=== PATIENT | female | born 1990 ===

== ENCOUNTER 2025-03-12 19:27 | Emergency (ER) | payer BC ==
[~2025-03-12] VITALS: Ht 160 cm; Wt 120.7 kg
[2025-03-12 19:30] VITALS: BP 123/65; PULSE 78; RESP 20; TEMP 97.7
--- NOTE | 2025-03-12 20:05 | ERN ---
ED Note History of Present Illness Stated Complaint: C/O HEAVY MENSTRUAL CYCLE Chief Complaint: Menstrual Cramps/Pain Time Seen by MD: 19:30 Dictation: 35-YEAR-OLD FEMALE PRESENTS TO ER COMPLAINTS OF HEAVY MENSTRUAL CYCLE FOR 23 DAYS. DENIES ANY DIZZINESS OR FEELING FAINT. PATIENT STATES SHE DOES NOT HAVE [employer] SUPERVISOR APPOINTMENT UNTIL 1 MORE WEEK. Past Medical History Past Medical History: No Pertinent History Surgical History: None LMP: Mar 12, 2025 Review of System Dictation CONSTITUTIONAL: NEGATIVE FOR FEVER,CHILLS, AND WEIGHT LOSS EYES: NEGATIVE FOR INJURY, PAIN,REDNESS, AND DISCHARGE ENT: NEGATIVE FOR INJURY,PAIN OR SWELLING CARDIOVASCULAR: NEGATIVE FOR CHEST PAIN, PALPITATIONS, AND EDEMA RESPIRATORY: NEGATIVE FOR SHORTNESS OF BREATH, COUGH, WHEEZING, AND PLEURITIC CHEST PAIN ABDOMEN/GI: NEGATIVE FOR ABDOMINAL PAIN, NAUSEA, VOMITING, DIARRHEA, AND CONSTIPATION BACK: NEGATIVE FOR INJURY AND PAIN : POSITIVE FOR VAGINAL BLEEDING MS/EXTREMITY: NEGATIVE FOR INJURY AND DEFORMITY SKIN: NEGATIVE FOR RASH, AND DISCOLORATION NEURO: NEGATIVE FOR HEADACHE, WEAKNESS, NUMBNESS, TINGLING, AND SEIZURE PSYCH: NEGATIVE FOR SUICIDE IDEATION, HOMICIDAL IDEATION, AND HALLUCINATIONS ALLERGY/IMMUNOLOGY: NEGATIVE FOR HIVES, RASH, AND ALLERGIES Initial Vital Sign VS Vital Signs Date Time Temp Pulse Resp B/P (MAP) Pulse Ox O2 Delivery O2 Flow Rate FiO2 03/12/25 19:30 97.7 78 20 123/65 99 Room Air Physical Exam Dictation GENERAL: AWAKE, ALERT, NAD HEAD/FACE: NORMOCEPHALIC, ATRAUMATIC EYES: PERRL, EOMI, VISION AT BASELINE ENT: ORAL CAVITY CLEAR, TMS CLEAR, NO SIGNS OF INFECTION NECK: TRACHEA MIDLINE, SUPPLE, NO NUCHAL RIGIDITY CARDIOVASCULAR: RRR, NORMAL S1/S2, NO MRGS, NO JVD RESPIRATORY: CTAB, NO RESPIRATORY DISTRESS, NO RALES OR WHEEZES ABDOMEN: SOFT, NON-TENDER, NON-DISTENDED, NORMAL BOWEL SOUNDS, NO GUARDING OR REBOUND. SKIN: WARM, DRY, NORMAL TURGOR, NO RASH MS/EXTREMITY: PULSES EQUAL, NO CYANOSIS, NEUROVASCULAR INTACT, FROM NEURO: COAX4, GCS 15, STRENGTH 5/5, CN 2-12 INTACT, NORMAL CEREBELLAR EXAM, NORMAL GAIT, PSYCH: NORMAL BEHAVIOR, MOOD, AND AFFECT NORMAL ED Course ED Course Vital Signs Date Time Temp Pulse Resp B/P (MAP) Pulse Ox O2 Delivery O2 Flow Rate FiO2 8/20/25 19:30 97.7 78 20 123/65 99 Room Air Medical Decision Making MDM MDM: DIFFERENTIAL DIAGNOSIS: MENORRHAGIA, OVULATORY DYSFUNCTION, DYSMENORRHEA RATIONALE: TESTS CONSIDERED AND ORDERED SECONDARY TO SHARED DECISION MAKING INCLUDE: LABS, ECG AND RADIOLOGY PREVIOUS OUTSIDE RECORDS REVIEWED: OLD ER VISITS. RISK OF COMPLICATION AND/OR MORBIDITY OR MORTALITY OF PATIENT MANAGEMENT: NONE MEDICATIONS-PER MEDICATION RECONCILIATION NEED FOR HOSPITALIZATION: PATIENT DOES NOT MEET CRITERIA FOR HOSPITALIZATION. NEED FOR EMERGENCY MAJOR/MINOR SURGERY: NO THERE ARE NO SOCIAL CONCERNS WITH THIS PATIENT. PRESCRIPTION DRUG MANAGEMENT PRESCRIPTIONS WILL INCLUDE SYMPTOMATIC CARE PATIENT'S PRIOR EXTERNAL MEDICAL RECORDS FROM OTHER ER VISITS WERE REVIEWED BY ME INDICATED. PRIOR TESTING AND RESULTS FROM PREVIOUS VISITS WERE REVIEWED. PRIOR TESTS WERE TAKEN INTO ACCOUNT WITH MEDICAL DECISION MAKING AND RESOURCE UTILIZATION, INDEPENDENT HISTORIAN/HISTORIANS WERE USED TO OBTAIN COMPLETE MEDICAL HISTORY. I INDEPENDENTLY INTERPRETED THE TEST THAT WERE PERFORMED, RESULTS WERE REVIEWED BY ME AND CONSIDERED FINDINGS ON RADIOLOGY IF ORDERED. PATIENT NOT TACHYCARDIC, STABLE. ONLY BLEEDING THROUGH 3 PADS A DAY. 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 PATIENT DECLINED PRESCRIPTION STATES SHE HAS MOTRIN AT HOME. ADVISED TO KEEP A [employer] SUPERVISOR APPOINTMENT TAKING GO TO EVALUATE AND POSSIBLY PLACED ON HORMONE REPLACEMENT LIKE CONTROL TO PREVENT HEAVY PERIODS. PATIENT VSS, NAD, NONTOXIC, STABLE FOR DISCHARGE. PT GIVEN DISCHARGE INSTRUCTIONS IN LAYMAN TERMS AND UNDERSTOOD, ALL QUESTIONS ANSWERED. PT WILL FOLLOW UP WITH PCP AND RETURN TO THE ER IF WORSE. DX & DISP Disposition: Discharge Departure Impression: Primary Impression: Menorrhagia Additional Impression: Dysmenorrhea Condition: Stable Additional Instructions: KEEP PR[employer] SUPERVISOR APPOINTMENT. TAKE MOTRIN ADVISED TO HELP WITH BLEEDING CONTROL. FOLLOW-UP WITH YOUR PCP IN 24-72 HOURS AND IN THE EVENT IF SYMPTOMS WORSEN OR AN EMERGENCY OVERNIGHT REPORT TO THE ED IMMEDIATELY Referrals: GIANNA DESAI MD (PCP) FLORINA VILLEDA NP Mar 12, 2025 20:05
--- NOTE | 2025-03-12 20:19 | NUR ---
PATIENT LEFT PRIOR TO BEING ASSESS BY ER NURSING STAFF, PATIENT WAS SEEN BY ER SHEEP RANCHER. PATIENT LEFT WITHOUT DISCHARGE INSTRUCTIONS
== END 2025-03-12 20:20 | disposition home or self-care (01) ==
LOC: EDH 19:27
DX: N92.0 Excessive and frequent menstruation with regular cycle (principal); N94.6 Dysmenorrhea, unspecified
CPT/HCPCS: 99282